=== PATIENT | female | born 1935 | race Caucasian/White ===

== ENCOUNTER → 2023-12-15 10:39 | Outpatient (REF) | payer OTHER, SELFPAY ==
[2023-12-15 12:57] LABS: Blood Urea Nitrogen 30 mg/dl (7-17); Calcium 9.8 mg/dl (8.4-10.2); Carbon Dioxide 27 mmol/L (22-30); Chloride 106 mmol/L (98-107); Glucose 106 mg/dl (70-99); Magnesium 1.5 mg/dl (1.6-2.3); Potassium 5.8 mmol/L (3.5-5.1); Sodium 137 mmol/L (135-145)
== END ==
LOC: HWLAB 10:39
PROVIDERS: ATTENDING PHYSICIAN Specialist; FAMILY PHYSICIAN Nurse Practitioner
DX: I10 Essential (primary) hypertension (principal)
CPT/HCPCS: 36415; 80048; 83735

== ENCOUNTER 2024-01-04 09:57 | Emergency (ER) | payer OTHER, SELFPAY ==
[2024-01-04 09:59] VITALS: BP 127/83
[2024-01-04 10:35] VITALS: BMI 29.5
--- NOTE | 2024-01-04 10:44 | ED.GENMED ---
History of Present Illness
General
Chief Complaint: Musculo-Skeletal Complaint
Source: patient
Exam Limitations: none
Time Seen by Provider: 01/04/24 10:37
Travel History
Have you had any contact with someone who has COVID-19?: No
Do you have any symptoms of coronavirus? Fever > 100 degrees, chills, cough, shortness of breath, sore throat, loss of taste or smell, muscle aches, or headache?: No
History of Present Illness
History of Present Illness:
See MDM
Past History
Past History
ED Past Medical History: GERD, HTN, Hypercholesterolemia and Other (Raynauds)
ED Past Surgical History: Gynecological (Fibroid removal), Orthopedic (Hip replacement) and Other (Bunions surgery)
Social History
Tobacco: Former smoker
Alcohol: Daily (Vodka 1-1.5)
Drug: None
Personal:
Living: alone
Phy Exam
Physical Exam
Physical Exam:
See MDM
Course
Orders/Labs/Results
Orders:
Orders
01/04/24 10:44
Hip, Left 2-3 Views [CR Hip - LT w/wo Pel 2-3 Vw*] Urgent
Comment:
Reason For Exam: recent fall, left hip and pelvic pain
Include a pelvis x-ray?: Yes
Vital Signs
Initial and Last Documented VS:
Initial Vital Signs
Temp Pulse Resp BP Pulse Ox
98.1 F 68 20 127/83 99
01/04/24 09:59 01/04/24 09:59 01/04/24 09:59 01/04/24 09:59 01/04/24 09:59
Last Documented Vital Signs
Temp Pulse Resp BP Pulse Ox
98.1 F 68 20 127/83 99
01/04/24 09:59 01/04/24 09:59 01/04/24 09:59 01/04/24 09:59 01/04/24 09:59
MDM/Problems Addressed
Differential Diagnosis Includes:
HPI and MDM Narrative:
88-year-old female presenting with left hip pain. Patient fell last week and has been dealing with the pain ever since. Patient is concerned she could have fractured her prosthetic hip. On arrival, patient is able to ambulate
On exam, the leg is not shortened or externally rotated. I discussed the low likelihood of hip fracture but will obtain x-ray looking for evidence of greater trochanteric fracture versus pelvic fracture
Physical exam
General: Well appearing and non-toxic
HEENT: protecting airway
Neck: appears supple
CV: No evidence of cyanosis
Resp: No accessory muscle use
Abd: Non-distended. Pelvis stable to compression
Extremities: No deformities. Distal legs neurovascular intact. Pain localized to palpation of left hip.
Neuro: alert
Psych: Normal affect
Skin: Intact
Problems Addressed including Acute and Chronic Conditions affecting care:
1. Hip injury
Acuity: acute
Prognosis: stable
Details: Will obtain x-ray looking for fracture
Updates
X-ray negative for fracture. Patient ambulating. Discussed return precautions
Differential Diagnosis (but not limited to): Hip contusion, hip fracture, pelvic fracture
Testing considered: CT head but she denies head trauma
Drug therapy (if applicable): OTC meds, please see d/c instruction regarding Rx drugs
Amount and/or Complexity of Data Reviewed
Clinical info obtained from: Patient
External data reviewed: N/A
Labs I independently reviewed (but not limited to): N/A
Radiology: X-ray independently reviewed: No hip or pelvic fracture
Pulse Ox: not hypoxic
EKG independently reviewed: N/A
Associate Principal: N/A
Critical Care: N/A
Risk of Complication:
Social Determinants of health: Good social support
Discussed with other providers: N/A
Escalation of Care includes Admit/Obs: After being observed in the Emergency Department, pt stable for discharge.
Occasional wrong word or 'sound a like' substitutions may have occurred due to the inherent limitations of voice recognition software. Read the chart carefully and recognize, using context, where substitutions have occurred.
*Critical Care Note
Total Time (30-74mins, 75-104mins- exclusive of procedures): Not Applicable
ED Attending Note
-
Portions of this chart may have been created with voice recognition software.� Occasional wrong word or��sound alike� substitutions may have occurred due to the inherent limitations of voice recognition software.
Discharge Plan
Departure
Patient Disposition: Home (Routine Discharge)
Date of Disposition: 01/04/24
Time of Disposition: 12:23
Patient with high blood pressure during this ER visit?: No
Discharge Problem:
Contusion of hip, left
Instructions: Hip Pain (DC)
Prescriptions:
No Action
diphenoxylate-atropine 1 TABLET tablet
1 tab PO TIDPRN PRN (Reason: stomach pain)
furosemide 20 MG tablet
20 mg PO DAILYPRN PRN (Reason: weight gain)
labetalol 200 MG tablet
200 mg PO TID
lisinopril 20 MG tablet
40 mg PO DAILY
alprazolam 0.25 MG tablet
0.25 mg PO HSPRN PRN (Reason: insomnia, anxiety)
ibuprofen 200 MG tablet
200 mg PO Q6HPRN PRN (Reason: fever)
famotidine 20 MG tablet
20 mg PO HS Qty: 30 0RF
cholestyramine-aspartame [Cholestyramine Light] 1 PACKET powder in packet
1 packet PO BID Qty: 14 0RF
fidaxomicin [Dificid] 200 MG tablet
200 mg PO BID Qty: 13 0RF
magnesium L-lactate [Magtab] 84 MG tablet extended release
168 mg PO BID Qty: 30 0RF
calcium carbonate 500 MG tablet,chewable
1,000 mg PO DAILY Qty: 30 0RF
Referrals:
Yoli Marina CRNP [Family Provider] -
Activity Restrictions/Additional Instructions:
Please return for any worsening symptoms.
You may return at any time if you have further concerns.
Please follow up with your doctor at the first available appointment, preferably this week.
Thank you for choosing [facility].
Interventions
Interventions:
*Risk Screen - Suicide Last Done: 01/04/24 09:59
*General Assessment Last Done: 01/04/24 09:59
*Neglect/Abuse Screening Last Done: 01/04/24 09:59
ED- Fall Risk Assessment Last Done: 01/04/24 10:35
*ED COVID-19 Vaccine History Last Done: 01/04/24 10:35
ED-Musculoskeletal Assessment Last Done: 01/04/24 10:35
ED- Neurological Assessment Last Done: 01/04/24 10:35
ED-Skin Assessment Last Done: 01/04/24 10:35
== END 2024-01-04 12:43 | disposition home or self-care (01) ==
LOC: EMR 09:57
PROVIDERS: EMERGENCY PHYSICIAN Student in an Organized Health Care Education/Training Program; FAMILY PHYSICIAN Nurse Practitioner
DX: S70.02XA Contusion of left hip, initial encounter (principal); W19.XXXA Unspecified fall, initial encounter; Z87.891 Personal history of nicotine dependence
CPT/HCPCS: 99283; 73502

== ENCOUNTER → 2024-01-21 13:23 | Outpatient (REF) | payer OTHER, SELFPAY | LOC: RAD 13:23 | PROVIDERS: ATTENDING PHYSICIAN Specialist; FAMILY PHYSICIAN Nurse Practitioner | DX: R60.0 Localized edema (principal) | CPT/HCPCS: 93970 ==

== ENCOUNTER → 2024-02-01 12:18 | Outpatient (REF) | payer OTHER, SELFPAY ==
[2024-02-01 15:10] LABS: % Basophils 0.3 % (0-2); % Eosinophils 1.3 % (0-6); % Immature Granulocytes 0.1 % (0-0.5); % Monocytes 9.1 % (1.7-9.3); % Neutrophils 55.2 % (42.2-75.2); Absolute Eosinophils 0.1 10^3/uL (0-0.7); Absolute Lymphocytes 2.3 10^3/uL (1.2-3.4); Absolute Monocytes 0.6 10^3/uL (0.1-0.6); Absolute Neutrophils 3.7 10^3/uL (1.4-6.5); Mean Corp Hgb Conc. 32.4 g/dL (33.0-37.0); Mean Corpuscular Hgb 33.2 pg (27.0-31.0); Mean Corpuscular Volume 102.7 fL (81.0-99.0); Mean Platelet Volume 10.3 fL (7.4-10.4); Nucleated Red Blood Cells % 0 %; Platelet Count 202 10^3/uL (130-400); Red Blood Cell Count 3.31 10^6/uL (4.20-5.40); Red Cell Dist. Width 14.2 % (11.5-14.5); White Blood Cell Count 6.8 10^3/uL (4.8-10.8)
[2024-02-01 15:13] LABS: Albumin 4.6 g/dl (3.5-5.0); Blood Urea Nitrogen 59 mg/dl (7-17); Calcium 10.5 mg/dl (8.4-10.2); Carbon Dioxide 26 mmol/L (22-30); Chloride 103 mmol/L (98-107); Glucose 104 mg/dl (70-99); Phosphorus 4.1 mg/dl (2.5-4.5); Potassium 5.6 mmol/L (3.5-5.1); Sodium 135 mmol/L (135-145); eGFR 28.84
== END ==
LOC: HWLAB 12:18
PROVIDERS: ATTENDING PHYSICIAN Specialist; FAMILY PHYSICIAN Nurse Practitioner
DX: I10 Essential (primary) hypertension (principal)
CPT/HCPCS: 36415; 80069; 85025

== ENCOUNTER → 2024-02-09 10:52 | Outpatient (REF) | payer OTHER, SELFPAY ==
[2024-02-09 13:17] LABS: Blood Urea Nitrogen 55 mg/dl (7-17); Calcium 10.6 mg/dl (8.4-10.2); Carbon Dioxide 28 mmol/L (22-30); Chloride 103 mmol/L (98-107); Glucose 95 mg/dl (70-99); Potassium 5.3 mmol/L (3.5-5.1); Sodium 140 mmol/L (135-145); eGFR 36.41
== END ==
LOC: HWLAB 10:52
PROVIDERS: ATTENDING PHYSICIAN Specialist; FAMILY PHYSICIAN Nurse Practitioner
DX: I10 Essential (primary) hypertension (principal); E83.51 Hypocalcemia; E87.5 Hyperkalemia
CPT/HCPCS: 36415; 80048

== ENCOUNTER → 2024-04-17 10:47 | Outpatient (REF) | payer OTHER, SELFPAY ==
[2024-04-17 12:48] LABS: Blood Urea Nitrogen 26 mg/dl (7-17); Calcium 9.8 mg/dl (8.4-10.2); Carbon Dioxide 28 mmol/L (22-30); Chloride 107 mmol/L (98-107); Glucose 105 mg/dl (70-99); Potassium 4.9 mmol/L (3.5-5.1); Sodium 140 mmol/L (135-145); eGFR 54.19
[2024-04-17 13:19] LABS: Protein/creatinine Ratio 0.1; Urine Protein 13 mg/dl
== END ==
LOC: HWLAB 10:47
PROVIDERS: ATTENDING PHYSICIAN Specialist; FAMILY PHYSICIAN Nurse Practitioner
DX: I10 Essential (primary) hypertension (principal)
CPT/HCPCS: 36415; 80048; 82570; 84156

== ENCOUNTER → 2024-08-01 10:33 | Outpatient (REF) | payer OTHER, SELFPAY ==
[2024-08-01 16:36] LABS: ALT (SGPT) 22 U/L (0-35); AST (SGOT) 27 U/L (14-36); Blood Urea Nitrogen 29 mg/dl (7-17); Calcium 9.9 mg/dl (8.4-10.2); Chloride 106 mmol/L (98-107); Glucose 95 mg/dl (70-99); HDL Cholesterol 68 mg/dl; LDL Cholesterol, Calculated 51 mg/dl; Magnesium 1.6 mg/dl (1.6-2.3); Phosphorus 3.9 mg/dl (2.5-4.5); Potassium 5.4 mmol/L (3.5-5.1); Sodium 143 mmol/L (135-145); Total Cholesterol 131 mg/dl (50-199); Triglyceride 62 mg/dl (10-149); Very Low Density Lipoprotein 12 mg/dl (0-30); eGFR 43.54
[2024-08-01 18:05] LABS: Albumin 4.4 g/dl (3.5-5.0); Carbon Dioxide 25 mmol/L (22-30)
== END ==
LOC: HWLAB 10:33
PROVIDERS: ATTENDING PHYSICIAN Nurse Practitioner; FAMILY PHYSICIAN Internal Medicine; REFERRING PHYSICIAN Specialist
DX: E78.2 Mixed hyperlipidemia (principal); I10 Essential (primary) hypertension; E87.6 Hypokalemia; E83.51 Hypocalcemia; E87.5 Hyperkalemia; E83.42 Hypomagnesemia
CPT/HCPCS: 36415; 80061; 80069; 83735; 84450; 84460

== ENCOUNTER → 2024-10-09 11:35 | Outpatient (REF) | payer OTHER, SELFPAY ==
[2024-10-09 15:47] LABS: Blood Urea Nitrogen 26 mg/dl (7-17); Calcium 9.6 mg/dl (8.4-10.2); Carbon Dioxide 29 mmol/L (22-30); Chloride 106 mmol/L (98-107); Glucose 121 mg/dl (70-99); Magnesium 1.5 mg/dl (1.6-2.3); Potassium 4.7 mmol/L (3.5-5.1); Sodium 141 mmol/L (135-145); eGFR 54.19
== END ==
LOC: HWLAB 11:35
PROVIDERS: ATTENDING PHYSICIAN Specialist; FAMILY PHYSICIAN Internal Medicine
DX: I10 Essential (primary) hypertension (principal)
CPT/HCPCS: 36415; 80048; 83735

== ENCOUNTER 2024-12-28 12:37 | Emergency (ER) | payer OTHER, SELFPAY ==
[2024-12-28 12:40] VITALS: BP 200/96
[2024-12-28 13:11] VITALS: BP 125/107
[2024-12-28 13:28] LABS: % Basophils 0.5 % (0-2); % Eosinophils 1.4 % (0-6); % Immature Granulocytes 0.3 % (0-0.5); % Lymphocytes 27.2 % (20.5-51.1); % Monocytes 9.3 % (1.7-9.3); % Neutrophils 61.3 % (42.2-75.2); Absolute Eosinophils 0.1 10^3/uL (0-0.7); Absolute Lymphocytes 2.1 10^3/uL (1.2-3.4); Absolute Monocytes 0.7 10^3/uL (0.1-0.6); Absolute Neutrophils 4.7 10^3/uL (1.4-6.5); Hematocrit 36.8 % (37.0-47.0); Hemoglobin 12.1 g/dL (12.0-16.0); Mean Corp Hgb Conc. 32.9 g/dL (33.0-37.0); Mean Corpuscular Hgb 32.5 pg (27.0-31.0); Mean Corpuscular Volume 98.9 fL (81.0-99.0); Mean Platelet Volume 9.4 fL (7.4-10.4); Nucleated Red Blood Cells % 0 %; Platelet Count 188 10^3/uL (130-400); Red Blood Cell Count 3.72 10^6/uL (4.20-5.40); Red Cell Dist. Width 14.4 % (11.5-14.5); White Blood Cell Count 7.7 10^3/uL (4.8-10.8)
[2024-12-28 13:44] LABS: ALT (SGPT) 26 U/L (0-35); AST (SGOT) 29 U/L (14-36); Albumin 4.4 g/dl (3.5-5.0); Alkaline Phosphatase 123 U/L (38-126); Blood Urea Nitrogen 22 mg/dl (7-17); Calcium 10.1 mg/dl (8.4-10.2); Carbon Dioxide 28 mmol/L (22-30); Chloride 106 mmol/L (98-107); Glucose 107 mg/dl (70-99); Potassium 4.1 mmol/L (3.5-5.1); Sodium 139 mmol/L (135-145); Total Protein 6.5 g/dl (6.3-8.2); eGFR 54.19
[2024-12-28 14:01] VITALS: BP 202/76
--- NOTE | 2024-12-28 14:12 | ED.GENMED ---
History of Present Illness
General
Chief Complaint: Blood Pressure Problem
Source: patient
Exam Limitations: none
Time Seen by Provider: 12/28/24 13:29
Nursing documentation reviewed up to this point in time: agreed with
History of Present Illness
History of Present Illness:
Patient presents to ED with from home secondary to persistent elevated blood pressure, despite taking her medications, as prescribed by her pilot fuel engineer. Denies chest pain. Denies headache. Denies shortness of breath. Denies dizziness. Patient
states that she routinely checks her blood pressure 3 times a day, at the same time she takes her blood pressure medication. She has an appointment with her pilot fuel engineer next week.
Past History
Past History
ED Past Medical History: GERD, HTN, Hypercholesterolemia and Other (Raynauds)
ED Past Surgical History: Gynecological (Fibroid removal), Orthopedic (Hip replacement) and Other (Bunions surgery)
Social History
Tobacco: Former smoker
Alcohol: Daily (Vodka 1-1.5)
Drug: None
Personal:
Living: alone
Review of Systems
Review of Systems
Allergies reviewed?: Yes
All Other Systems: ROS reviewed and negative except as documented in HPI and ROS
Constitutional: Reports no symptoms
Respiratory: Reports no symptoms; Denies trouble breathing
Cardiac: Reports no symptoms; Denies chest pain
ABD/GI: Reports no symptoms
Musculoskeletal: Reports no symptoms
Skin: Reports no symptoms
Neurological: Reports no symptoms; Denies dizzy or headache
Phy Exam
Physical Exam
Physical Exam:
Physical Exam
General: no apparent distress, not acutely ill. afebrile
Head: nc/at. eomi
Neck: supple. normal range of motion.
Heart: s1/s2 regular rate and rhythm, no murmur.
Lungs: no acute respiratory distress. clear bilaterally
Abdomen: normal bowel sounds. not tender.
Neuro: alert and oriented x 3. no focal neurological deficits
Skin: no rash
Psychiatric: well kept. interactive and cooperative
Extremities: no edema. no calf tenderness.
Course
Orders/Labs/Results
Orders:
Orders
12/28/24 12:43
Electrocardiogram (*1) Urgent
Reason for Study: Hypertension, Benign
EKG- Treatment ONCE
12/28/24 12:49
Complete Blood Count/With Diff Urgent
Comprehensive Metabolic Panel Urgent
Abnormal Lab Results
12/28/24
12:49
RBC 3.72 L 10^6/uL
(4.20-5.40)
Hct 36.8 L %
(37.0-47.0)
MCH 32.5 H pg
(27.0-31.0)
MCHC 32.9 L g/dL
(33.0-37.0)
Absolute Monos (auto) 0.7 H 10^3/uL
(0.1-0.6)
BUN 22 H mg/dl
(7-17)
Glucose 107 H mg/dl
(70-99)
Total Bilirubin 2.0 H mg/dl
(0.2-1.3)
12/28/24 12:49
12/28/24 12:49
Vital Signs
Initial and Last Documented VS:
Initial Vital Signs
Temp Pulse Resp BP Pulse Ox
97.7 F 71 16 200/96 98
12/28/24 12:40 12/28/24 12:40 12/28/24 12:40 12/28/24 12:40 12/28/24 12:40
Last Documented Vital Signs
Temp Pulse Resp BP Pulse Ox
97.7 F 63 18 134/86 97
12/28/24 12:40 12/28/24 15:01 12/28/24 15:01 12/28/24 15:01 12/28/24 15:01
MDM/Problems Addressed
MDM/Problems Addressed:
Patient with spontaneous improvement and subsequently stable blood pressure during observation in ED, without any discomfort. As such, patient will be discharged home in stable condition, to the care of her daughter, where she will follow-up with
her pilot fuel engineer next week, already scheduled, for reevaluation.
*EKG
Interpreted by ED Provider?: Yes
EKG Intrepretation Date: 12/28/24
Heart Rate: 67
Rate: normal
Rhythm: sinus
Newell: normal axis
Interval: normal interval
*Critical Care Note
Total Time (30-74mins, 75-104mins- exclusive of procedures): Not Applicable
ED Attending Note
-
Portions of this chart may have been created with voice recognition software.� Occasional wrong word or��sound alike� substitutions may have occurred due to the inherent limitations of voice recognition software.
Discharge Plan
Departure
Patient Disposition: Home (Routine Discharge)
Date of Disposition: 12/28/24
Time of Disposition: 15:06
Patient with high blood pressure during this ER visit?: Yes
Condition: Good
Discharge Problem:
Hypertension
Instructions: High Blood Pressure (DC)
Prescriptions:
No Action
diphenoxylate-atropine 1 TABLET tablet
1 tab PO TIDPRN PRN (Reason: stomach pain)
furosemide 20 MG tablet
20 mg PO DAILYPRN PRN (Reason: weight gain)
labetalol 200 MG tablet
200 mg PO TID
lisinopril 20 MG tablet
40 mg PO DAILY
alprazolam 0.25 MG tablet
0.25 mg PO HSPRN PRN (Reason: insomnia, anxiety)
ibuprofen 200 MG tablet
200 mg PO Q6HPRN PRN (Reason: fever)
famotidine 20 MG tablet
20 mg PO HS Qty: 30 0RF
cholestyramine-aspartame [Cholestyramine Light] 1 PACKET powder in packet
1 packet PO BID Qty: 14 0RF
fidaxomicin [Dificid] 200 MG tablet
200 mg PO BID Qty: 13 0RF
magnesium L-lactate [Magtab] 84 MG tablet extended release
168 mg PO BID Qty: 30 0RF
calcium carbonate 500 MG tablet,chewable
1,000 mg PO DAILY Qty: 30 0RF
Referrals:
Rupert Crowell MD [Active] -
Yoli Marina CRNP [Family Provider] -
Activity Restrictions/Additional Instructions:
As discussed, please follow-up with your pilot fuel engineer next week, as scheduled, for reevaluation.
Interventions
Interventions:
*Risk Screen - Suicide Last Done: 12/28/24 12:40
*Neglect/Abuse Screening Last Done: 12/28/24 12:40
*Nursing Disposition Last Done: 12/28/24 15:09
ED- Cardiac Assessment Last Done: 12/28/24 15:08
ED- Neurological Assessment Last Done: 12/28/24 15:08
ED- Pulmonary Assessment Last Done: 12/28/24 15:08
Discharge Date and Time
Print Language: YAKUT
[2024-12-28 15:01] VITALS: BP 134/86
== END 2024-12-28 15:09 | disposition home or self-care (01) ==
LOC: EMR 12:37
PROVIDERS: EMERGENCY PHYSICIAN Emergency Medicine; FAMILY PHYSICIAN Nurse Practitioner
DX: I10 Essential (primary) hypertension (principal); K21.9 Gastro-esophageal reflux disease without esophagitis; E78.00 Pure hypercholesterolemia, unspecified; I73.00 Raynaud's syndrome without gangrene; Z87.891 Personal history of nicotine dependence
CPT/HCPCS: 99283; 80053; 85025; 93005

== ENCOUNTER → 2025-01-05 11:15 | Outpatient (REF) | payer OTHER, SELFPAY ==
[2025-01-05 13:19] LABS: Urine Albumin Negative (Neg - Trace); Urine Bilirubin Negative (Negative); Urine Character Clear (Clear); Urine Color Yellow; Urine Glucose Negative (Negative); Urine Ketone Negative (Negative); Urine Leukocyte 2+ (Negative); Urine Nitrite Negative (Negative); Urine Occult Blood Negative (Negative); Urine Urobilinogen Negative (Neg - 1+)
[2025-01-05 14:22] LABS: Urine Amorphous Seen
[2025-01-05 14:23] LABS: Urine Red Blood Cell 0-2 /HPF (0-2)
[2025-01-05 14:38] LABS: Protein/creatinine Ratio 0.1; Urine Protein 9 mg/dl
== END ==
LOC: HWLAB 11:15
PROVIDERS: ATTENDING PHYSICIAN Specialist
DX: I10 Essential (primary) hypertension (principal)
CPT/HCPCS: 36415; 81003; 81015; 82088; 82384; 82570; 83835; 84156; 84244

== ENCOUNTER → 2025-01-15 10:15 | Outpatient (REF) | payer OTHER, SELFPAY | LOC: HWRAD 10:15 | PROVIDERS: ATTENDING PHYSICIAN Specialist; FAMILY PHYSICIAN Nurse Practitioner | DX: I10 Essential (primary) hypertension (principal) | CPT/HCPCS: 93975 ==

== ENCOUNTER → 2025-03-27 10:44 | Outpatient (REF) | payer OTHER, SELFPAY ==
[2025-03-27 16:05] LABS: Blood Urea Nitrogen 57 mg/dl (7-17); Calcium 9.3 mg/dl (8.4-10.2); Carbon Dioxide 23 mmol/L (22-30); Chloride 112 mmol/L (98-107); Glucose 101 mg/dl (70-99); Magnesium 1.3 mg/dl (1.6-2.3); Potassium 5.3 mmol/L (3.5-5.1); Sodium 142 mmol/L (135-145); eGFR 22.11
== END ==
LOC: HWLAB 10:44
PROVIDERS: ATTENDING PHYSICIAN Specialist
DX: I10 Essential (primary) hypertension (principal)
CPT/HCPCS: 36415; 80048; 83735

== ENCOUNTER → 2025-04-03 11:00 | Outpatient (REF) | payer OTHER, SELFPAY ==
[2025-04-03 16:08] LABS: Blood Urea Nitrogen 52 mg/dl (7-17); Carbon Dioxide 21 mmol/L (22-30); Chloride 113 mmol/L (98-107); Glucose 111 mg/dl (70-99); Potassium 5.5 mmol/L (3.5-5.1); Sodium 142 mmol/L (135-145)
== END ==
LOC: HWLAB 11:00
PROVIDERS: ATTENDING PHYSICIAN Specialist
DX: R79.89 Other specified abnormal findings of blood chemistry (principal); E87.5 Hyperkalemia
CPT/HCPCS: 36415; 80048

== ENCOUNTER → 2025-05-07 10:29 | Outpatient (REF) | payer OTHER, SELFPAY ==
[2025-05-07 13:18] LABS: Blood Urea Nitrogen 54 mg/dl (7-17); Calcium 10.2 mg/dl (8.4-10.2); Carbon Dioxide 24 mmol/L (22-30); Chloride 112 mmol/L (98-107); Glucose 105 mg/dl (70-99); Magnesium 1.6 mg/dl (1.6-2.3); Sodium 142 mmol/L (135-145); eGFR 33.10
[2025-05-07 13:30] LABS: Potassium 6.1 mmol/L (3.5-5.1)
== END ==
LOC: HWLAB 10:29
PROVIDERS: ATTENDING PHYSICIAN Specialist
DX: I10 Essential (primary) hypertension (principal); E87.6 Hypokalemia; E83.42 Hypomagnesemia; E83.51 Hypocalcemia
CPT/HCPCS: 36415; 80048; 83735

== ENCOUNTER → 2025-05-10 10:41 | Outpatient (REF) | payer OTHER, SELFPAY ==
[2025-05-10 14:06] LABS: Blood Urea Nitrogen 62 mg/dl (7-17); Calcium 10.1 mg/dl (8.4-10.2); Carbon Dioxide 24 mmol/L (22-30); Chloride 111 mmol/L (98-107); Glucose 104 mg/dl (70-99); Potassium 6.2 mmol/L (3.5-5.1); Sodium 141 mmol/L (135-145); eGFR 39.31
== END ==
LOC: HWLAB 10:41
PROVIDERS: ATTENDING PHYSICIAN Specialist
DX: I10 Essential (primary) hypertension (principal); E87.5 Hyperkalemia
CPT/HCPCS: 36415; 80048

== ENCOUNTER → 2025-05-14 10:22 | Outpatient (REF) | payer OTHER, SELFPAY ==
[2025-05-14 16:04] LABS: ALT (SGPT) 30 U/L (0-35); AST (SGOT) 31 U/L (14-36); Albumin 4.9 g/dl (3.5-5.0); Alkaline Phosphatase 104 U/L (38-126); Blood Urea Nitrogen 46 mg/dl (7-17); Calcium 9.9 mg/dl (8.4-10.2); Carbon Dioxide 22 mmol/L (22-30); Chloride 112 mmol/L (98-107); Glucose 109 mg/dl (70-99); HDL Cholesterol 73 mg/dl; LDL Cholesterol, Calculated 62 mg/dl; Potassium 5.6 mmol/L (3.5-5.1); Sodium 140 mmol/L (135-145); Total Protein 7.0 g/dl (6.3-8.2); Very Low Density Lipoprotein 19 mg/dl (0-30); eGFR 43.27
[2025-05-14 16:11] LABS: Hematocrit 35.4 % (37.0-47.0); Hemoglobin 11.7 g/dL (12.0-16.0); Mean Corp Hgb Conc. 33.1 g/dL (33.0-37.0); Mean Corpuscular Volume 98.1 fL (81.0-99.0); Nucleated Red Blood Cells % 0 %; Platelet Count 245 10^3/uL (130-400); Red Cell Dist. Width 13.8 % (11.5-14.5)
[2025-05-14 16:21] LABS: Vitamin D, 25-OH*** 66.2 ng/mL (30-80)
[2025-05-14 17:10] LABS: Folate > 20.0 ng/ml (2.76-20); Vitamin B12 625 pg/ml (239-931)
== END ==
LOC: HWLAB 10:22
PROVIDERS: ATTENDING PHYSICIAN Specialist
DX: I10 Essential (primary) hypertension (principal); E87.6 Hypokalemia; E83.51 Hypocalcemia; E83.42 Hypomagnesemia; E78.2 Mixed hyperlipidemia; N18.32 Chronic kidney disease, stage 3b; K21.9 Gastro-esophageal reflux disease without esophagitis; G62.9 Polyneuropathy, unspecified
CPT/HCPCS: 36415; 80053; 80061; 82306; 82607; 82746; 84443; 85025